=== PATIENT | male | born 1975 | race Caucasian/White ===

== ENCOUNTER 2018-08-20 10:01 | Emergency (ER) | payer MEDICAID ==
[~2018-08-20] VITALS: Ht 183.5 cm; Wt 87.5 kg
[2018-08-20 10:20] VITALS: BP 103/82
[2018-08-20] MEDS ORDERED: LIDOcaine 1.5% w/epinephrine 1:200,000 5ml ampul IJ ONE (11:50)
[2018-08-20] MEDS ORDERED: SULF1TAB49 PO (11:50)
[2018-08-20] MEDS ORDERED: TETanus/Pertussis (Acell)/Diphther VAC/PF (Tdap-Adult) 0.5ml syringe IM ONE (11:50)
[2018-08-20] MEDS ORDERED: LIDOcaine 1% w/epiNEPHrine 1:200,000 30ml vial IJ ONE (11:55)
== END 2018-08-20 12:26 | disposition home or self-care (01) ==
LOC: ER 10:01
DX: K13.0 Diseases of lips (principal); F12.10 Cannabis abuse, uncomplicated
CPT/HCPCS: 10060; 90471; 90715; 99283; J3490